=== PATIENT | male | born 1965 | race Caucasian/White ===

== ENCOUNTER → 2016-10-21 | Outpatient (CLI) | payer OTHER ==
[~2016-10-21] MED LIST: ANDG TOP; BUPR-79 PO; CYCL5TAB PO; FAMO40TA6 PO; HYDR-3763 PO; IMT100 PO; LISI20TA3 PO; METO25TA56 PO
[2016-10-21 17:07] LABS: BASO % 0.4 %; BASO ABS # 0.04 K/uL (0-0.2); COMPLETE YES; EOS % 2.4 %; HEMATOCRIT 49.2 % (42-52); IG% 0.3 %; LYMPH % 28.6 %; LYMPH ABS # 2.73 K/uL (1.2-3.4); MEAN CELL VOLUME 89.8 fL (80-100); MEAN CORPUSCULAR HEMOGLOBIN 29.4 pg (25-34); MEAN CORPUSCULAR HGB CONC 32.7 g/dl (32-36); MEAN PLATELET VOLUME 11.2 fL (7.4-10.4); MONO % 7.5 %; NEUT % 60.8 %; PLATELET COUNT 285 K/uL (130-400); RED BLOOD COUNT 5.48 M/uL (4.7-6.1); WHITE BLOOD COUNT 9.55 K/uL (4.8-10.8)
[2016-10-21 17:17] LABS: ALT/SGPT 53 U/L (12-78); AST/SGOT 25 U/L (15-37); BLOOD UREA NITROGEN 15 mg/dl (7-18); BUN/CREATININE RATIO 10.4 (10-20); CALCIUM 9.5 mg/dl (8.5-10.1); CARBON DIOXIDE 26 mmol/L (21-32); CHLORIDE 111 mmol/L (98-107); GLUCOSE 133 mg/dl (70-99); POTASSIUM 3.9 mmol/L (3.5-5.1); SODIUM 142 mmol/L (136-145); TRIGLYCERIDES 412 mg/dl (0-150); URIC ACID 7.3 mg/dl (2.6-7.2)
[2016-10-21 17:24] LABS: TESTOSTERONE,TOTAL 175.6 ng/dl
[2016-10-21 17:26] LABS: ALB/GLOB RATIO 1.2 (0.9-2); ALKALINE PHOSPHATASE 66 U/L (45-117); CHOLESTEROL 197 mg/dl (0-200); CHOLESTEROL/HDL RATIO 5.1; HDL CHOLESTEROL 39 mg/dl; THYROID STIMULATING HORMONE 0.786 uIu/ml (0.300-4.500); TOTAL IRON BINDING CAPACITY 335 mcg/dl (250-450)
[2016-10-22 06:36] LABS: ESTIMATED AVERAGE GLUCOSE 100 mg/dl; HA1C FLAG Normal (Normal)
== END | disposition home or self-care (01) ==
LOC: C.LABBC 14:29
PROVIDERS: ATTEND Family Medicine
DX: R73.09 Other abnormal glucose (principal); E55.9 Vitamin D deficiency, unspecified; D51.9 Vitamin B12 deficiency anemia, unspecified; E78.9 Disorder of lipoprotein metabolism, unspecified; R53.83 Other fatigue

== ENCOUNTER 2023-12-16 15:03 | Inpatient (IN) ==
--- NOTE | 2023-12-16 16:29 | Emergency Department Note ---
Impression & Plan Acute kidney injury, Right testicular pain, Nephrolithiasis ED Provider Note CHIEF COMPLAINT: right testicular pain, right flank pain HISTORY OF PRESENT ILLNESS: This 58 year old male patient presents to the emergency department via private vehicle for evaluation of right testicular pain and right flank pain. The patient was here yesterday. The patient had a history of varicocelectomy completed approximately 2 months ago. He has had some persistent scrotal pain since this procedure, but the pain is primarily in the left. Yesterday morning, he woke up and the pain was on the right. He states the pain was very acute and he presented to the emergency department at that time. He had labs and ultrasound imaging which were generally unrevealing. He was started on Levaquin. The patient states he has taken his prescribed hydrocodone, but has not taken any additional pain medication. He does note that the Toradol yesterday did seem to help significantly with his pain. The patient denies any fever. He states today, the pain seems to be wrapping around into the right side of the back. He denies any dysuria, urinary frequency, urinary hesitancy, hematuria. He did have nausea and vomiting earlier in the day. He denies any history of similar symptoms. Patient has not called his urologist to establish outpatient follow-up appointment regarding these symptoms. REVIEW OF SYSTEMS: A 10 system review of systems was performed with positives and pertinent negatives listed in the history of present illness. All other systems were reviewed and are negative. ALLERGIES: Topamax PHYSICAL EXAM: VITALS: Vitals are noted on the nurse's note and reviewed by myself. Vital signs stable. GENERAL: This is a 58 year old male, in no acute distress, nondiaphoretic, well- developed well-nourished. SKIN: The skin was without rashes, erythema, edema, or bruising. There is no tenting of the skin. Capillary refill less than 2 seconds. HEAD: Normocephalic atraumatic. EYES: Conjunctivae without injection, sclerae without icterus. NECK: Supple without nuchal rigidity. No lymphadenopathy. Cervical spine is nontender. No JVD. HEART: Regular rate and rhythm without murmurs gallops or rubs. LUNGS: Clear to auscultation bilaterally without wheezes, rales or rhonchi. No retractions or accessory muscle use. ABDOMEN: Positive bowel sounds x 4. Soft, nontender, without masses or organomegaly. Osuna sign negative. No guarding or rebound tenderness. MUSCULOSKELETAL: No muscle atrophy, erythema, or edema noted. Full range of motion without joint tenderness in all extremities. No tenderness to palpation. Normal gait. Strength 5/5 throughout. NEURO: Patient was alert and oriented to person place and time. No focal neurological deficits. An order was placed for continuous manager monitoring. The monitor showed a normal sinus rhythm at a ventricular rate of 97 bpm, per my interpretation. Imaging as interpreted by myself and the radiologist revealed 3 distal ureteral stones with hydronephrosis, with radiologist interpretation as above. I agree with the radiologist's findings as based upon my independent interpretation. EMERGENCY DEPARTMENT COURSE: The patient was seen and evaluated as above. Previous medical records to include previous ED visit were reviewed. The patient presents today due to right testicular pain which is radiating around to the right flank. He did have ultrasound yesterday which was generally unrevealing. He had urinalysis and labs completed as well at that time. The patient was started on levofloxacin which he has not picked up from the pharmacy yet. He did experience significant improvement in his pain with Toradol. IV access was obtained, labs were drawn. Patient was hydrated with IV fluids and medicated with Toradol. Labs reviewed. Per my interpretation, there was a leukocytosis of 15,000. No anemia or thrombocytopenia. Hepatic function and electrolytes without significant abnormality. Creatinine is elevated at 2.09. This is a change from creatinine yesterday of 1.38. Lipase is 16. Urinalysis with 1+ leukocyte esterase and 11-20,000 epithelial cells as well as 1+ ketones. No bacteria or nitrates. CT imaging was completed and reviewed by myself radiologist as noted. This was concerning for 3 distal ureteral stones with hydronephrosis. Given the workup completed here in the emergency department as well as the MINOO when compared to labs completed yesterday, I did recommend inpatient management. The patient was agreeable. I discussed case with the [facility] hospitalist physician, Dr. Mancilla. He did request that I speak with urology. I discussed the case with Dr. Hand, urologist on-call. He recommends keeping the patient n.p.o. at midnight and will discuss the case with his partners. The patient may go to the OR for stent placement tomorrow. Please see hospitalist and urology dictation regarding ongoing management care of this patient. This visit is during a period of high volume and high acuity in the emergency department. I attest that I have personally reviewed the patient medication list. I attest that I have reviewed the patient's blood pressure and it was found to be normal GCS: 15 In the evaluation and treatment of this patient the following differential diagnoses were entertained: Testicular torsion, mass, infection, hernia, hydrocele, stone, epididymitis, STI, trauma, intra-abdominal process, as well as other pathologies. The chart was completed utilizing [employer] voice recognition software. Grammatical errors, random word insertions, pronoun errors, and incomplete sentences are an occasional consequence of this system due to software limitations, ambient noise, and hardware issues. Any formal questions or concerns about the content, text, or information contained within the body of this dictation should be directly addressed to the provider for clarification. Past Med/Surg History Problem List (Updated 12/17/23 @ 00:16 by Kacie Perez PA-C) Acute kidney injury (Acute) Urine WBC increased (Acute) Right testicular pain (Acute) Hypertension Scrotal pain Left varicocele Migraine without aura Tinnitus, bilateral Situational stress Delayed sleep phase syndrome Fatigue Vitamin D deficiency Colon cancer screening Encounter for pre-operative examination Hyperlipidemia Left lower quadrant pain Prostate asymmetry Mood disorder TMJ (temporomandibular joint disorder) Actinic keratoses Sleep apnea Left inguinal hernia Prostate cancer screening Impacted ear wax Testicular pain Erectile dysfunction Exposure to sexually transmitted disease (STD) Mood disorder Atypical mole Hypogonadism in male GERD (gastroesophageal reflux disease) Dyslipidemia Lumbar disc disease Fibromyalgia (01/06/13) Nephrolithiasis (Acute) Migraine headache Hypertension Medical History Mood disorder Dyslipidemia Hypertension Insufficient sleep syndrome Migraine Encounter for sterilization Venom-induced anaphylaxis 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 "had been having trouble chewing and opening and closing mouth, due to the pain">started on cyclobenzaprine. pt stated "he has been using it every night and it helps">no locking Lumbar disc disease Fibromyalgia Sleep apnea not currently using cpap GERD (gastroesophageal reflux disease) Anxiety History of COVID-19 x2, most recent 08/2021, home test, not hosp; mild symptoms>resolved Depression Personal history of urinary calculi (01/06/13) Surgical History History of excision of pilonidal cyst Hx of colonoscopy Hx of wisdom tooth extraction S/P cystoscopy with ureteral stent placement S/P shoulder surgery 2016- acromioplasty & distal clavicular resection, left History of vasectomy Family History Mother Hypertension Thyroid cancer Father COPD (chronic obstructive pulmonary disease) Melanoma of skin Sister Breast cancer Sister Colorectal cancer Denies family history of Sudden Ovarian cancer Prostate cancer Diabetes Myocardial infarction Lung cancer Lung disease Social History Smoking Status: Former smoker Tobacco Type: Cigarettes Age Started Using Tobacco: 18; Age Quit Using Tobacco: 49; packs per day: 0.5; Cigarettes Per Day: 2-3; Second Hand Exposure: No; Do You Dip or Chew Tobacco: No; Tobacco Cessation Education Requested by Patient: No Hx Alcohol Use: Yes Alcohol type: hard liquor Alcohol Intake Frequency: Monthly or Less Hx Substance Use: No Preferred Language: Belgian Communication Ability: Effective Visual Impairment: Limited Hearing Ability: Normal Fiber Worker Required: No Beliefs That Will Affect Care: None marital status: Current Living Situation: Family Current Living Situation Comment: Patient and his two children. current occupational status: employed current occupation: Shuttle Operator How many Children do You have: 3 Other Information That Helps Us Care for You: No Feels Safe at Home: Yes Safety Concerns: Feels Safe At This Time Childhood Exposure to Second-Hand Smoke: Yes Diet: regular caffeine: Yes (1-2 cups of coffee daily , occasional tea) during the past year weight has: remained stable Dental Care, Regularly: Yes Physical Activity Frequency: 3-4 Times per Week Seatbelt Use: always Sunscreen Use: Yes Do you think of yourself as: straight/heterosexual Gender Identity: Male Assistive Devices: Glasses Allergies Allergies Allergy/AdvReac Type Severity Reaction Status Date / Time bee venom protein (honey bee) Allergy Severe Anaphylaxis Verified 12/15/23 09:17 topiramate [From Topamax] AdvReac Unknown renal stone Verified 12/15/23 09:17 Home Meds Home Medications Medication Instructions Recorded Confirmed ergocalciferol (vitamin D2) 1,250 1,250 mcg PO 2XWK 01/22/23 12/16/23 mcg (50,000 unit) capsule (Vitamin D2) tadalafil 20 mg tablet 20 mg PO DAILY PRN Erectile 01/22/23 12/16/23 Dysfunction cyclobenzaprine 10 mg tablet 10 mg PO HS PRN prn 09/09/23 12/16/23 naratriptan 2.5 mg tablet 2.5 mg PO UD PRN prn 09/09/23 12/16/23 pantoprazole 40 mg tablet,delayed 40 mg PO BID 09/23/23 12/16/23 release (Protonix) Previous Rx's Medication Instructions Recorded sildenafil 100 mg tablet 100 mg PO DAILY PRN sexual 12/04/22 activity #10 tabs sumatriptan succinate 100 mg tablet 100 mg PO Q2H PRN migraine 02/19/23 headache #10 tabs testosterone (AndroGel) 2 pump topical DAILY #75 grams 07/22/23 alprazolam 0.5 mg tablet (Xanax) 0.5 mg PO HS #30 tabs 07/23/23 bupropion HCl 150 mg tablet,12 hr 150 mg PO BID #60 tabs 08/06/23 sustained-release hydrocodone 10 mg-acetaminophen 1 tab PO TID PRN pain #90 tabs 11/25/23 325 mg tablet tamsulosin 0.4 mg capsule 0.4 mg PO QPM #30 caps 11/25/23 divalproex 250 mg tablet,delayed 250 mg PO HS #30 tabs 11/27/23 release Saccharomyces boulardii 250 mg 250 mg PO BID #20 caps 12/15/23 capsule (Florastor) levofloxacin 500 mg tablet 500 mg PO DAILY 10 days #10 tabs 12/15/23 Results & Data (ED) Vital Signs Vital Signs - 24 hr 12/16/23 15:55 12/16/23 16:41 12/16/23 17:28 Temperature 36.9 C Temperature Source Temporal Artery Scan Pulse Rate 110 H 88 Pulse Rate [Apical] 99 H Respiratory Rate 18 14 18 Blood Pressure 136/82 Blood Pressure [Right Arm] 143/86 H Blood Pressure Mean 100 Blood Pressure Mean [Right Arm] 105 Pulse Oximetry 95 98 96 Oxygen Delivery Method Room Air Room Air Sepsis Recent Fever Within 48 Hours No Sepsis New/Unexplained Change in Mental Status No Sepsis Action Taken by Nursing No Action Required 12/16/23 18:30 Temperature Temperature Source Pulse Rate Pulse Rate [Apical] 94 H Respiratory Rate 16 Blood Pressure Blood Pressure [Right Arm] 134/90 Blood Pressure Mean Blood Pressure Mean [Right Arm] 104 Pulse Oximetry 97 Oxygen Delivery Method Room Air Sepsis Recent Fever Within 48 Hours Sepsis New/Unexplained Change in Mental Status Sepsis Action Taken by Nursing Laboratory Data 12/16/23 16:44 12/16/23 16:44 Lab Results 12/16/23 12/16/23 Range/Units 16:44 17:26 WBC 15.82 H (4.8-10.8) K/ul RBC 5.45 (4.70-6.10) M/uL Hgb 15.8 (14.0-18.0) g/dl Hct 47.1 (42.0-52.0) % MCV 86.4 (80.0-100.0) fL MCH 29.0 (25.0-34.0) pg MCHC 33.5 (32.0-36.0) g/dL RDW Std Deviation 39.5 (36.4-46.3) fL RDW Coeff of Marco 12.7 (11.5-14.5) % Plt Count 218 (130-400) K/uL MPV 10.7 (9.4-12.4) fL Immature Gran % (Auto) 0.5 % Neut % (Auto) 83.9 % Lymph % (Auto) 7.4 % [place] % (Auto) 8.0 % Eos % (Auto) 0.1 % Baso % (Auto) 0.1 % Neut # (Auto) 13.27 H (1.40-6.50) K/uL Lymph # (Auto) 1.17 L (1.20-3.40) K/uL [place] # (Auto) 1.27 H (0.11-0.59) K/uL Eos # (Auto) 0.01 (0.00-0.50) K/uL Baso # (Auto) 0.02 (0.00-0.20) K/uL Immature Gran # (Auto) 0.08 (0.01-0.20) K/uL Sodium 139 (136-145) mmol/L Potassium 3.7 (3.5-5.1) mmol/L Chloride 105 (98-107) mmol/L Carbon Dioxide 26 (21-32) mmol/L Anion Gap 8 (3-11) BUN 20 (6-23) mg/dl Creatinine 2.09 H D (0.6-1.4) mg/dl Est Cr Clr Drug Dosing 41.8 ml/min Est GFR ( Amer) 39.5 ml/min Est GFR (Non-Af Amer) 34.1 ml/min BUN/Creatinine Ratio 9.6 L (10-20) Glucose 148 H (70-99(Fasting)) mg/dl Calcium 9.4 (8.6-10.3) mg/dl Total Bilirubin 1.0 (0.2-1.0) mg/dl AST 20 (13-39) U/L ALT 19 (7-52) U/L Alkaline Phosphatase 50 (34-104) U/L Total Protein 7.3 (6.0-8.3) gm/dl Albumin 4.3 (3.4-5.0) gm/dl Globulin 3.0 (2.5-4.0) gm/dl Albumin/Globulin Ratio 1.4 (0.9-2) Lipase 16 (11-82) U/L Urine Color Yellow Urine Appearance Clear (Clear) Urine pH 5.5 (4.5-7.5) Ur Specific Stewart 1.029 (1.000-1.030) Urine Protein 1+ H (Negative) Urine Glucose (UA) Trace H (Negative) Urine Ketones 1+ H (Negative) Urine Blood Negative (Negative) Urine Nitrite Negative (Negative) Urine Bilirubin Negative (Negative) Urine Urobilinogen Negative (Negative) Ur Leukocyte Esterase 1+ H (Negative) Urine WBC (Auto) 11-20 H (0-5) /hpf Urine RBC (Auto) 0-2 (0-2) /hpf U Hyaline Cast (Auto) 0-2 (0-2) /lpf U Epithel Cells (Auto) 0-2 (0-2) /hpf Urine Bacteria (Auto) None Seen (None Seen) Administered Medications Alprazolam (Alprazolam 0.5 Mg Tablet) 0.5 mg PO HS TORREY Stop: 01/15/24 20:59 Last Admin: 12/16/23 21:33 Dose: 0.5 mg Documented By: TAYE Bupropion HCl (Bupropion Sr 150 Mg Tabcr) 150 mg PO BID TORREY Stop: 01/15/24 20:59 Last Admin: 12/16/23 21:33 Dose: 150 mg Documented By: TAYE Cyclobenzaprine HCl (Cyclobenzaprine Hcl 10 Mg Tab) 10 mg PO HS PRN PRN Reason: prn Stop: 01/15/24 20:40 Last Admin: 12/16/23 21:33 Dose: 10 mg Documented By: TAYE Divalproex Sodium (Divalproex Delay Release 250 Mg Tabec) 250 mg PO HS TORREY Stop: 01/15/24 20:59 Last Admin: 12/16/23 21:34 Dose: 250 mg Documented By: TAYE Parenteral Electrolytes (Plasma-Lyte A Ph 7.4) 1,000 mls @ 100 mls/hr IV .Q10H TORREY Stop: 12/17/23 15:14 Last Admin: 12/16/23 21:33 Dose: 100 mls/hr Documented By: TAYE Pantoprazole Sodium (Pantoprazole 40 Mg Tab) 40 mg PO BID TORREY Stop: 01/15/24 20:59 Last Admin: 12/16/23 21:34 Dose: 40 mg Documented By: TAYE Sumatriptan Succinate (Sumatriptan Succinate 100 Mg Tab) 100 mg PO Q2H PRN PRN Reason: migraine headache Stop: 01/15/24 20:40 Last Admin: 12/16/23 23:15 Dose: 100 mg Documented By: TAYE Tamsulosin HCl (Tamsulosin Hcl 0.4 Mg Cap) 0.4 mg PO QPM TORREY Stop: 01/15/24 20:59 Last Admin: 12/16/23 21:34 Dose: 0.4 mg Documented By: TAYE Discontinued Medications Sodium Chloride (Nss) 1,000 mls @ 999 mls/hr IV .Q1H1M STA Stop: 12/16/23 17:19 Last Infusion: 12/16/23 18:03 Dose: Infused Documented By: Admin: 09/25/24 16:40 Dose: 999 mls/hr Documented By: MARTA Ceftriaxone Sodium (Rocephin) 2,000 mg in 50 mls @ 100 mls/hr IV NOW STA Stop: 12/16/23 19:20 Last Infusion: 12/16/23 21:02 Dose: Infused Documented By: Admin: 12/16/23 19:51 Dose: 100 mls/hr Documented By: HECTOR Ketorolac Tromethamine (Ketorolac Tromethamine 15 Mg/Ml Vial) 10 mg IV NOW STA Stop: 12/16/23 16:20 Last Admin: 12/16/23 16:40 Dose: 10 mg Documented By: MARTA Ondansetron HCl (Ondansetron Inj 2 Mg/Ml 2 Ml Vial) 4 mg IV NOW STA Stop: 12/16/23 16:20 Last Admin: 12/16/23 16:40 Dose: 4 mg Documented By: SRL Imaging Data Radiologist's Impression: Abdomen/Pelvis CT 12/16/23 16:[address] WITHOUT CONTRAST CT DOSE: 1313.84 mGy.cm HISTORY: Acute right-sided flank pain right flank pain rad to right scrotum TECHNIQUE: Multiaxial CT images of the abdomen and pelvis were performed without contrast. A dose lowering technique was utilized adhering to the principles of ALARA. COMPARISON STUDY: 02/10/2023 FINDINGS: Mild bibasilar atelectasis. Free air. Unremarkable spleen, pancreas, gallbladder and adrenal glands. Mild hepatomegaly with hepatic steatosis. No evidence of cirrhosis. Numerous nonobstructing bilateral renal calculi redemonstrated measuring up to approximately 4 mm bilaterally. There is mild right-sided hydroureteronephrosis with reactive perinephric and perirenal inflammatory stranding secondary to approximately 3 obstructing calculus distal right ureter/UVJ measuring up to 5 mm. Partially decompressed urinary bladder. Prostatomegaly. Atherosclerosis of the aorta without aneurysm. Surgical clips of the scrotum. No bowel obstruction or bowel wall thickening. Colonic diverticulosis. Indeterminate 3.4 cm focus in the mid cecum, likely stool products. Normal appendix. No acute fracture. IMPRESSION: 1. Mild right-sided hydroureteronephrosis secondary to three distal right ureteral calculi measuring up to 5 mm. 2. Nonobstructing bilateral nephrolithiasis. 3. Normal appendix. 4. Hepatic steatosis. ACT 112: Negative or not required by law. The above report was generated using voice recognition software. It may contain grammatical, syntax or spelling errors. Electronically signed by: Carmine Hampton M.D. 12/16/2023 5:31 PM Discharge Plan Visit Data Chief Complaint: Back Injury/Pain Stated Complaint: BACK PAIN ED Provider: Carmelita Estevez ED Midlevel Provider: Kacie Perez Discharge Problem: Acute kidney injury, Right testicular pain, Nephrolithiasis Patient Disposition: Admitted As Inpatient Discharge Instructions Interventions: ED Discharge Assessment Last Done: 12/16/23 20:23
[2023-12-16] MEDS: SODIUM CHLORIDE 0.9% 1,000 ML IV STA (16:40)
[2023-12-16] MEDS: ONDANSETRON INJ 2 MG/ML 2 ML VIAL IV STA (16:40)
[2023-12-16] MEDS: KETOROLAC TROMETHAMINE 15 MG/ML VIAL IV STA (16:40)
[2023-12-16 17:08] LABS: Basophils # (auto) 0.02 K/uL (0.00-0.20); Basophils % (auto) 0.1 %; Eosinophils # (auto) 0.01 K/uL (0.00-0.50); Eosinophils % (auto) 0.1 %; Hematocrit (blood only) 47.1 % (42.0-52.0); Hemoglobin 15.8 g/dl (14.0-18.0); Immature Granulocytes # (auto) 0.08 K/uL (0.01-0.20); Immature Granulocytes % (auto) 0.5 %; Lymphocytes # (auto) 1.17 K/uL (1.20-3.40); Lymphocytes % (auto) 7.4 %; Mean Corpuscular Hgb Conc 33.5 g/dL (32.0-36.0); Mean Corpuscular Volume 86.4 fL (80.0-100.0); Mean Platelet Volume 10.7 fL (9.4-12.4); Monocytes # (auto) 1.27 K/uL (0.11-0.59); Neutrophils # (auto) 13.27 K/uL (1.40-6.50); Neutrophils % (auto) 83.9 %; Platelet Count 218 K/uL (130-400); RDW Coefficient of Variation 12.7 % (11.5-14.5); RDW Standard Deviation 39.5 fL (36.4-46.3); Red Blood Count 5.45 M/uL (4.70-6.10); White Blood Count 15.82 K/ul (4.8-10.8)
[2023-12-16 17:30] LABS: Albumin Globulin Ratio 1.4 (0.9-2); Albumin Level 4.3 gm/dl (3.4-5.0); BUN Creatinine Ratio 9.6 (10-20); Calcium 9.4 mg/dl (8.6-10.3); Creatinine Clr Calc Pharmacy 41.8 ml/min; Est GFR (African American) 39.5 ml/min; Est GFR (Non-African American) 34.1 ml/min; Potassium 3.7 mmol/L (3.5-5.1); Total Protein 7.3 gm/dl (6.0-8.3)
--- NOTE | 2023-12-16 17:34 | CT Scan Report ---
ABDOMEN AND PELVIS CT WITHOUT CONTRAST CT DOSE: 1313.84 mGy.cm HISTORY: Acute right-sided flank pain right flank pain rad to right scrotum TECHNIQUE: Multiaxial CT images of the abdomen and pelvis were performed without contrast. A dose lo wering technique was utilized adhering to the principles of ALARA. COMPARISON STUDY: 02/10/2023 FINDINGS: Mild bibasilar atelectasis. Free air. Unremarkable spleen, pancreas, gallbladder and adrena l glands. Mild hepatomegaly with hepatic steatosis. No evidence of cirrhosis. Numerous nonobstructing bilateral renal calculi redemonstrated measuring up to approximately 4 mm radha aterally. There is mild right-sided hydroureteronephrosis with reactive perinephric and perirenal inf lammatory stranding secondary to approximately 3 obstructing calculus distal right ureter/UVJ measuri ng up to 5 mm. Partially decompressed urinary bladder. Prostatomegaly. Atherosclerosis of the aorta w ithout aneurysm. Surgical clips of the scrotum. No bowel obstruction or bowel wall thickening. Colonic diverticulosis. Indeterminate 3.4 cm focus in the mid cecum, likely stool products. Normal appendix. No acute fracture. IMPRESSION: 1. Mild right-sided hydroureteronephrosis secondary to three distal right ureteral calculi measuring up to 5 mm. 2. Nonobstructing bilateral nephrolithiasis. 3. Normal appendix. 4. Hepatic steatosis. ACT 112: Negative or not required by law. The above report was generated using voice recognition software. It may contain grammatical, syntax o r spelling errors. Electronically signed by: Carmine Hampton M.D. 12/16/2023 5:31 PM
[2023-12-16 17:54] LABS: Appearance Urine Clear (Clear); Bacteria Urine Automated None Seen (None Seen); Bilirubin Urine Negative (Negative); Blood Urine Negative (Negative); Cast Urine Automated 0-2 /lpf (0-2); Color Urine Yellow; Epithelial Cell Urine Auto 0-2 /hpf (0-2); Glucose Urine UA Trace (Negative); Ketones Urine 1+ (Negative); Leukocyte Esterase Urine 1+ (Negative); Nitrite Urine Negative (Negative); Protein Urine 1+ (Negative); RBC Urine Automated 0-2 /hpf (0-2); Specific Gravity Urine 1.029 (1.000-1.030); Urobilinogen Urine Negative (Negative); pH Urine 5.5 (4.5-7.5)
--- NOTE | 2023-12-16 18:44 | History & Physical Report ---
Date of Service December 16, 2023 Assessment & Plan (1) Nephrolithiasis: Plan: Worsening right-sided scrotal and lower back pain x 2 days Leukocytosis at 11.55->15.82 with a neutrophil predominance A/P CT revealed mild right-sided hydroureteronephrosis secondary to 3 distal right ureteral calculi measuring up to 5 mm Urology consult appreciated N.p.o. at midnight in the event that patient requires stenting Will cover for infected stone with Rocephin 2000 mg IV q24h IVF resuscitation with Plasma-Lyte at 100mL/hr x 2 L Pain control with IV acetaminophen and Dilaudid as needed Continue tamsulosin A.m. CBC, BMP (2) Acute kidney injury: Plan: BUN 20, creatinine 2.09 (baseline 1.38; the day prior), eGFR 39.5 Avoid nephrotoxic agents where possible IVF (above) Trend BMP (3) Scrotal pain: Plan Disposition: Admit to [facility] Full code Regular diet; n.p.o. at midnight VTE PPx: SCDs History of Present Illness Chief Complaint: Back injury/pain Primary Care Provider: Harlan Johnson MD Kaushik is a 58-year-old male with PMH of HTN, migraine, nephrolithiasis, fibromyalgia, GERD, dyslipidemia, mood disorder, sleep apnea, and bilateral tinnitus. He originally presented to the ED on 12/14 for acute onset of right sided groin pain; was discharged on levofloxacin 500 mg daily. He returned on 12/15 as the pain worsened and began to radiate to his lower back. History of recent varicocelectomy on September 23, 2023; however this was on the left side. Patient reports that the pain in his right groin and lower back is intermittent and comes in waves, but can last for hours at a time. He characterizes it as an achy pain and describes it as 2/10 at present, 8/10 at worst. No radiation down the legs. Patient took hydrocodone tablets (3 half tablets today), but reports that this did not alleviate his pain. He does have a history of kidney stones, but feels like prior kidney stones were more painful than what he is feeling currently. Patient has not had much to eat or drink all day. He took his regular morning medications today; no recent change in medications. No history of UTIs. He reports no medication allergies, or allergies to antibiotics such as penicillin. Patient's vitals are stable at time of admission. ED course: Toradol 10 mg IV Zofran 4 mg IV NSS 1000 L IV ROS: Patient endorses R-sided groin pain, lower back pain, lightheadedness with movements, pink urine yesterday (concern for blood in urine), Patient denies fever, chills, night-sweats, IVERSON, chest pain, SOB, cough, abdominal pain, burning with urination, decreased urinary frequency, dysuria, saddle anesthesia, blood in the stool, or N/T going down the legs. Allergies Allergy/AdvReac Type Severity Reaction Status Date / Time bee venom protein (honey bee) Allergy Severe Anaphylaxis Verified 12/15/23 09:17 topiramate [From Topamax] AdvReac Unknown renal stone Verified 12/15/23 09:17 Home Medications Medication Instructions Recorded Confirmed Type sildenafil 100 mg tablet 100 mg PO DAILY PRN sexual 12/04/22 12/16/23 Rx activity #10 tabs ergocalciferol (vitamin D2) 1,250 1,250 mcg PO 2XWK 01/22/23 12/16/23 History mcg (50,000 unit) capsule (Vitamin D2) tadalafil 20 mg tablet 20 mg PO DAILY PRN Erectile 01/22/23 12/16/23 History Dysfunction sumatriptan succinate 100 mg tablet 100 mg PO Q2H PRN migraine 02/19/23 12/16/23 Rx headache #10 tabs testosterone (AndroGel) 2 pump topical DAILY #75 grams 07/22/23 12/16/23 Rx alprazolam 0.5 mg tablet (Xanax) 0.5 mg PO HS #30 tabs 07/23/23 12/16/23 Rx bupropion HCl 150 mg tablet,12 hr 150 mg PO BID #60 tabs 08/06/23 12/16/23 Rx sustained-release cyclobenzaprine 10 mg tablet 10 mg PO HS PRN prn 09/09/23 12/16/23 History naratriptan 2.5 mg tablet 2.5 mg PO UD PRN prn 09/09/23 12/16/23 History pantoprazole 40 mg tablet,delayed 40 mg PO BID 09/23/23 12/16/23 History release (Protonix) hydrocodone 10 mg-acetaminophen 1 tab PO TID PRN pain #90 tabs 11/25/23 12/16/23 Rx 325 mg tablet tamsulosin 0.4 mg capsule 0.4 mg PO QPM #30 caps 11/25/23 12/16/23 Rx divalproex 250 mg tablet,delayed 250 mg PO HS #30 tabs 11/27/23 12/16/23 Rx release Saccharomyces boulardii 250 mg 250 mg PO BID #20 caps 12/15/23 12/16/23 Rx capsule (Florastor) levofloxacin 500 mg tablet 500 mg PO DAILY 10 days #10 tabs 12/15/23 12/16/23 Rx Past Med/Surg History Problem List (Updated 12/16/23 @ 18:49 by Chong Alford PA-C) Acute kidney injury Urine WBC increased (Acute) Right testicular pain (Acute) Hypertension Scrotal pain Left varicocele Migraine without aura Tinnitus, bilateral Situational stress Delayed sleep phase syndrome Fatigue Vitamin D deficiency Colon cancer screening Encounter for pre-operative examination Hyperlipidemia Left lower quadrant pain Prostate asymmetry Mood disorder TMJ (temporomandibular joint disorder) Actinic keratoses Sleep apnea Left inguinal hernia Prostate cancer screening Impacted ear wax Testicular pain Erectile dysfunction Exposure to sexually transmitted disease (STD) Mood disorder Atypical mole Hypogonadism in male GERD (gastroesophageal reflux disease) Dyslipidemia Lumbar disc disease Fibromyalgia (01/06/13) Nephrolithiasis Migraine headache Hypertension Medical History Mood disorder Dyslipidemia Hypertension Insufficient sleep syndrome Migraine Encounter for sterilization Venom-induced anaphylaxis 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 "had been having trouble chewing and opening and closing mouth, due to the pain">started on cyclobenzaprine. pt stated "he has been using it every night and it helps">no locking Lumbar disc disease Fibromyalgia Sleep apnea not currently using cpap GERD (gastroesophageal reflux disease) Anxiety History of COVID-19 x2, most recent 08/2021, home test, not hosp; mild symptoms>resolved Depression Personal history of urinary calculi (01/06/13) Surgical History History of excision of pilonidal cyst Hx of colonoscopy Hx of wisdom tooth extraction S/P cystoscopy with ureteral stent placement S/P shoulder surgery 2016- acromioplasty & distal clavicular resection, left History of vasectomy Family History Mother Hypertension Thyroid cancer Father COPD (chronic obstructive pulmonary disease) Melanoma of skin Sister Breast cancer Sister Colorectal cancer Denies family history of Sudden Ovarian cancer Prostate cancer Diabetes Myocardial infarction Lung cancer Lung disease Social History Smoking Status: Former smoker Tobacco Type: Cigarettes Age Started Using Tobacco: 18; Age Quit Using Tobacco: 49; packs per day: 0.5; Second Hand Exposure: No; Do You Dip or Chew Tobacco: No; Hx Alcohol Use: Yes Alcohol type: wine and hard liquor Alcohol Intake Frequency: Monthly or Less Hx Substance Use: No Preferred Language: Emirati Communication Ability: Effective Visual Impairment: Limited Hearing Ability: Normal Financial Health Counselor Required: No Beliefs That Will Affect Care: None marital status: Current Living Situation: Family current occupational status: employed current occupation: Computer Help Desk Specialist How many Children do You have: 3 Feels Safe at Home: Yes Childhood Exposure to Second-Hand Smoke: Yes Diet: regular caffeine: Yes (1-2 cups of coffee daily , occasional tea) during the past year weight has: remained stable Dental Care, Regularly: Yes Physical Activity Frequency: 3-4 Times per Week Seatbelt Use: always Sunscreen Use: Yes Do you think of yourself as: straight/heterosexual Gender Identity: Male Assistive Devices: Glasses Review of Systems Review of Systems: See HPI above Physical Exam Physical Exam: General: no acute distress; pleasant affect; anxious; non-toxic appearing; well- nourished; cooperative; SpO2 97% on RA HEENT: normocephalic, atraumatic; no scleral icterus; PERRLA; vision and hearing grossly intact Neck: supple; no lymphadenopathy; trachea midline Skin: warm, dry without signs of tenting; no cyanosis; no rashes, bruising, lesions, or erythema noted CV: chest wall NTP; RRR; S1/S2 normal; no murmurs/rubs/gallops; pulses intact and symmetric at radial, DP, and PT Lungs: no acute respiratory distress; symmetrical chest wall expansion; clear breath sounds across all lung caldera w/o adventitious sounds; no wheezing ABD: Soft, NTP in all 4 quadrants; flanks NTP; BS present; no rebound/guarding; no distention; no rashes or bruising on the abdomen or flanks bilaterally MSK: no tics or fasciculations; no edema noted in the LEs b/l, nonerythematous Neuro: A&Ox3; normal mood and affect; fluent speech; no focal deficits; sensation grossly intact in the LEs b/l Results & Data Results & Data Vital Signs (Past 12 Hours) Vital Signs Temp Pulse Pulse Resp BP BP Pulse Ox 12/16/23 18:30 94 H 16 134/90 97 12/16/23 17:28 99 H 18 143/86 H 96 12/16/23 16:41 88 14 98 12/16/23 15:55 36.9 C 110 H 18 136/82 95 O2 Del Method 12/16/23 18:30 Room Air 12/16/23 17:28 12/16/23 16:41 Room Air 12/16/23 15:55 Room Air Laboratory Results Abnormal lab results 12/16/23 12/16/23 Range/Units 16:44 17:26 WBC 15.82 H (4.8-10.8) K/ul Neut # (Auto) 13.27 H (1.40-6.50) K/uL Lymph # (Auto) 1.17 L (1.20-3.40) K/uL Pickett # (Auto) 1.27 H (0.11-0.59) K/uL Creatinine 2.09 H D (0.6-1.4) mg/dl BUN/Creatinine Ratio 9.6 L (10-20) Glucose 148 H (70-99(Fasting)) mg/dl Urine Protein 1+ H (Negative) Urine Glucose (UA) Trace H (Negative) Urine Ketones 1+ H (Negative) Ur Leukocyte Esterase 1+ H (Negative) Urine WBC (Auto) 11-20 H (0-5) /hpf Diagnostic Findings Abdomen/Pelvis CT 12/16/23 16:[address] WITHOUT CONTRAST CT DOSE: 1313.84 mGy.cm HISTORY: Acute right-sided flank pain right flank pain rad to right scrotum TECHNIQUE: Multiaxial CT images of the abdomen and pelvis were performed without contrast. A dose lowering technique was utilized adhering to the principles of ALARA. COMPARISON STUDY: 02/10/2023 FINDINGS: Mild bibasilar atelectasis. Free air. Unremarkable spleen, pancreas, gallbladder and adrenal glands. Mild hepatomegaly with hepatic steatosis. No evidence of cirrhosis. Numerous nonobstructing bilateral renal calculi redemonstrated measuring up to approximately 4 mm bilaterally. There is mild right-sided hydroureteronephrosis with reactive perinephric and perirenal inflammatory stranding secondary to approximately 3 obstructing calculus distal right ureter/UVJ measuring up to 5 mm. Partially decompressed urinary bladder. Prostatomegaly. Atherosclerosis of the aorta without aneurysm. Surgical clips of the scrotum. No bowel obstruction or bowel wall thickening. Colonic diverticulosis. Indeterminate 3.4 cm focus in the mid cecum, likely stool products. Normal appendix. No acute fracture. IMPRESSION: 1. Mild right-sided hydroureteronephrosis secondary to three distal right ureteral calculi measuring up to 5 mm. 2. Nonobstructing bilateral nephrolithiasis. 3. Normal appendix. 4. Hepatic steatosis. ACT 112: Negative or not required by law. The above report was generated using voice recognition software. It may contain grammatical, syntax or spelling errors. Electronically signed by: Carmine Hampton M.D. 12/16/2023 5:31 PM Code Status & VTE Plan Code Status Full code (patient reports that he would want his girlfriend to be medical proxy and emergency situation) VTE Prophylaxis Plan VTE Prophylaxis will be ordered: Yes Supervising Physician Co-Signing Physician Notes Patient seen and examined, chart reviewed, case discussed with Chong Alford PA-C and I agree with the assessment and plan as above except as otherwise noted Labs and images reviewed Mr. العلي is a 58-year-old male with recent history of varicocelectomy left 09/23/2023, past history of GERD, fibromyalgia, lumbar disc disease, TIKA was seen in the ER yesterday for nonspecific mild leukocytosis and scrotal pain with a normal ultrasound while in the ER. Patient re-presents today with worsening pain extending into his back/flank. Seen at bedside. At time of provider reassessment patient reports his pain is greatly improved, but does still come in waves/spasms on his right side. Denies fever chills and sweats. CT shows right-sided hydro with 3 distal ureteral calculi up to 5 mm, he has associated likely obstructive MINOO and possible UTI. Urology is consulted. Patient is covered with Rocephin. IV FM. Agree with above. PG Care Time/CCT Total # of Minutes Spent Total Time Spent with Patient: Total time spent is greater than 50% in coordination of care (as documented) at patient's floor/unit and/or counseling patient: C[place] [address] INT INP/OBS CARE 2/55MIN Patient Type Established Medical Decision Making Moderate Complexity Diagnoses Nephrolithiasis N20.0 Acute kidney injury N17.9 Scrotal pain N50.82
[2023-12-16] MEDS: cefTRIAXone SODIUM 2,000 MG/50 ML BAG IV STA (19:51)
[2023-12-16] MEDS ORDERED: ONDANSETRON INJ 2 MG/ML 2 ML VIAL IV PRN (20:41)
[2023-12-16] MEDS: buPROPion SR 150 MG TABCR PO SCH (21:33)
[2023-12-16] MEDS: PLASMA-LYTE A 1,000 ML IV SCH (21:33)
[2023-12-16] MEDS: ALPRAZolam 0.5 MG TABLET PO SCH (21:33)
[2023-12-16] MEDS: CYCLOBENZAPRINE HCL 10 MG TAB PO PRN (21:33)
[2023-12-16] MEDS: TAMSULOSIN HCL 0.4 MG CAP PO SCH (21:34)
[2023-12-16] MEDS: PANTOprazole 40 MG TAB PO SCH (21:34)
[2023-12-16] MEDS: DIVALPROEX DELAY RELEASE 250 MG TABEC PO SCH (21:34)
[2023-12-16] MEDS: SUMAtriptan succinate 100 MG TAB PO PRN (23:15)
--- NOTE | 2023-12-17 07:34 | Urology Consultation ---
Date of Consultation December 17, 2023 Assessment & Plan (1) Acute kidney injury: (2) Right testicular pain: (3) Right ureteral stone: Plan We reviewed the stones in his right ureter. They are small enough that I think is a good chance of passing them spontaneously, however with his mild leukocytosis, there is suspicion for possible underlying infection. Additionally, his creatinine is somewhat elevated. We discussed the role for cystoscopy, right retrograde pyelogram and right ureteral stent placement. We discussed the risks and benefits of surgery. Initially he wanted to think about his options. After couple hours, he has had recurrent pain in and would now like to proceed with surgery. Will plan on cystoscopy, right retrograde pyelogram and right ureteral stent placement History of Present Illness Attending Physician: Paul Ortiz MD History of Present Illness This is a 57-year-old male followed by urology for hypogonadism, nephrolithiasis, erectile dysfunction and testicular pain. He underwent left microsurgical varicocelectomy on 09/23/2023 has been recovering well. He presented to the emergency department on 12/14 and then again on 12/16/2023 with right-sided flank and right testicular pain. Workup in the ED was notable for gradually increasing leukocytosis (11.55 on 12/14 and 15.8 on 12/15) tomorrow. He also was noted to have an increase in his creatinine (2.09 on 12/15). Urinalysis demonstrated 1+ leukocyte esterase, negative nitrites, negative bacteria. He had a CT scan of the abdomen pelvis. I independently reviewed these images. Both kidneys are in normal position. There are small, nonobstructing stones in both kidneys. There is hydronephrosis and some perinephric stranding on the right side extending down to a cluster of stones in the distal right ureter at the UPJ. His bladder appears grossly normal, as does his prostate. Urology was consulted regarding his ureteral stones. At the bedside this morning he denies any significant pain at the moment. He has had some nausea and vomiting. He denies any fevers or chills. Allergies Allergy/AdvReac Type Severity Reaction Status Date / Time bee venom protein (honey bee) Allergy Severe Anaphylaxis Verified 12/15/23 09:17 topiramate [From Topamax] AdvReac Unknown renal stone Verified 12/15/23 09:17 Home Medications Medication Instructions Recorded Confirmed Type sildenafil 100 mg tablet 100 mg PO DAILY PRN sexual 12/04/22 12/16/23 Rx activity #10 tabs ergocalciferol (vitamin D2) 1,250 1,250 mcg PO 2XWK 01/22/23 12/16/23 History mcg (50,000 unit) capsule (Vitamin D2) tadalafil 20 mg tablet 20 mg PO DAILY PRN Erectile 01/22/23 12/16/23 History Dysfunction sumatriptan succinate 100 mg tablet 100 mg PO Q2H PRN migraine 02/19/23 12/16/23 Rx headache #10 tabs testosterone (AndroGel) 2 pump topical DAILY #75 grams 07/22/23 12/16/23 Rx alprazolam 0.5 mg tablet (Xanax) 0.5 mg PO HS #30 tabs 07/23/23 12/16/23 Rx bupropion HCl 150 mg tablet,12 hr 150 mg PO BID #60 tabs 08/06/23 12/16/23 Rx sustained-release cyclobenzaprine 10 mg tablet 10 mg PO HS PRN prn 09/09/23 12/16/23 History naratriptan 2.5 mg tablet 2.5 mg PO UD PRN prn 09/09/23 12/16/23 History pantoprazole 40 mg tablet,delayed 40 mg PO BID 09/23/23 12/16/23 History release (Protonix) hydrocodone 10 mg-acetaminophen 1 tab PO TID PRN pain #90 tabs 11/25/23 12/16/23 Rx 325 mg tablet tamsulosin 0.4 mg capsule 0.4 mg PO QPM #30 caps 11/25/23 12/16/23 Rx divalproex 250 mg tablet,delayed 250 mg PO HS #30 tabs 11/27/23 12/16/23 Rx release Saccharomyces boulardii 250 mg 250 mg PO BID #20 caps 12/15/23 12/16/23 Rx capsule (Florastor) levofloxacin 500 mg tablet 500 mg PO DAILY 10 days #10 tabs 12/15/23 12/16/23 Rx Patient History Medical History Mood disorder Dyslipidemia Hypertension Insufficient sleep syndrome Migraine Encounter for sterilization Venom-induced anaphylaxis 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 "had been having trouble chewing and opening and closing mouth, due to the pain">started on cyclobenzaprine. pt stated "he has been using it every night and it helps">no locking Lumbar disc disease Fibromyalgia Sleep apnea not currently using cpap GERD (gastroesophageal reflux disease) Anxiety History of COVID-19 x2, most recent 08/2021, home test, not hosp; mild symptoms>resolved Depression Personal history of urinary calculi (01/06/13) Surgical History History of excision of pilonidal cyst Hx of colonoscopy Hx of wisdom tooth extraction S/P cystoscopy with ureteral stent placement S/P shoulder surgery 2016- acromioplasty & distal clavicular resection, left History of vasectomy Family History Mother Hypertension Thyroid cancer Father COPD (chronic obstructive pulmonary disease) Melanoma of skin Sister Breast cancer Sister Colorectal cancer Denies family history of Sudden Ovarian cancer Prostate cancer Diabetes Myocardial infarction Lung cancer Lung disease Social History Smoking Status: Former smoker Tobacco Type: Cigarettes Age Started Using Tobacco: 18; Age Quit Using Tobacco: 49; packs per day: 0.5; Cigarettes Per Day: 2-3; Second Hand Exposure: No; Do You Dip or Chew Tobacco: No; Tobacco Cessation Education Requested by Patient: No Hx Alcohol Use: Yes Alcohol type: hard liquor Alcohol Intake Frequency: Monthly or Less Hx Substance Use: No Preferred Language: Turkmen Communication Ability: Effective Visual Impairment: Limited Hearing Ability: Normal Repair Miller Required: No Beliefs That Will Affect Care: None marital status: Current Living Situation: Family Current Living Situation Comment: Patient and his two children. current occupational status: employed current occupation: [employer] How many Children do You have: 3 Other Information That Helps Us Care for You: No Feels Safe at Home: Yes Safety Concerns: Feels Safe At This Time Childhood Exposure to Second-Hand Smoke: Yes Diet: regular caffeine: Yes (1-2 cups of coffee daily , occasional tea) during the past year weight has: remained stable Dental Care, Regularly: Yes Physical Activity Frequency: 3-4 Times per Week Seatbelt Use: always Sunscreen Use: Yes Do you think of yourself as: straight/heterosexual Gender Identity: Male Assistive Devices: Glasses Review of Systems Review of Systems: 12 point review of systems negative exce pt for otherwise indicated. Physical Exam Constitutional: well developed and well nourished; no acute distress Eyes: + anicteric sclerae; pupils not irregula r Respiratory: normal respiratory effort; no respiratory distress, does not use accessory muscles and no cough Cardiovascular: well perfused Gastrointestinal (Abdomen): Inspection/Auscultation: abdomen normal to inspection; abdomen not distended Musculoskeletal: Extremities: extremities normal to inspection Skin: normal turgor; no rashes and no lesions Neurologic: moves all extremities and awake Psychiatric: Orientation: alert and oriented x 3 Results & Data Vital Signs (Past 12 Hours) Vital Signs Temp Pulse Pulse Resp BP Pulse Ox O2 Del Method 12/16/23 20:30 37 C 97 H 14 133/73 98 Room Air 12/16/23 19:56 37.5 C 96 H 18 129/80 96 Room Air PG Care Time/CCT Total # of Minutes Spent Total Time Spent with Patient: Total time spent is greater than 50% in coordination of care (as documented) at patient's floor/unit and/or counseling patient: Coding Level of Care Code 50026 IN/OBS CONSULT LVL 4,60M Diagnoses Acute kidney injury N17.9 Right testicular pain N50.811 Right ureteral stone N20.1
[2023-12-17 08:07] LABS: Basophils # (auto) 0.04 K/uL (0.00-0.20); Basophils % (auto) 0.3 %; Eosinophils # (auto) 0.26 K/uL (0.00-0.50); Eosinophils % (auto) 2.2 %; Hematocrit (blood only) 42.4 % (42.0-52.0); Hemoglobin 14.2 g/dl (14.0-18.0); Immature Granulocytes # (auto) 0.06 K/uL (0.01-0.20); Immature Granulocytes % (auto) 0.5 %; Lymphocytes # (auto) 2.18 K/uL (1.20-3.40); Lymphocytes % (auto) 18.6 %; Mean Corpuscular Hemoglobin 29.2 pg (25.0-34.0); Mean Corpuscular Hgb Conc 33.5 g/dL (32.0-36.0); Mean Corpuscular Volume 87.2 fL (80.0-100.0); Mean Platelet Volume 10.7 fL (9.4-12.4); Monocytes # (auto) 1.26 K/uL (0.11-0.59); Monocytes % (auto) 10.8 %; Neutrophils % (auto) 67.6 %; Platelet Count 179 K/uL (130-400); RDW Standard Deviation 40.8 fL (36.4-46.3); Red Blood Count 4.86 M/uL (4.70-6.10)
[2023-12-17] MEDS: HYDROmorphone INJ 0.5 MG/0.5 ML SYR IV PRN (08:33)
--- NOTE | 2023-12-17 09:09 | Hospitalist Progress Note ---
Date of Service December 17, 2023 Assessment & Plan (1) Nephrolithiasis: Plan: - Worsening right-sided scrotal and lower back pain x 2 days - Leukocytosis with a neutrophil predominance improving - A/P CT revealed mild right-sided hydroureteronephrosis secondary to 3 distal right ureteral calculi measuring up to 5 mm - continue with Rocephin 2000 mg IV q24h to cover for infected stone - continue IVF resuscitation with Plasma-Lyte at 100mL/hr x 2 L - Pain control with IV acetaminophen and Dilaudid as needed - Continue tamsulosin - Urology following - cystoscopy with stent placement 12/17/23 (2) Acute kidney injury: Plan: - BUN 20, creatinine 2.09 (baseline 1.38), eGFR 39.5 on admission; repeat shows mildly worsening kidney function - Avoid nephrotoxic agents where possible - continue IVF - continue to trend BMP (3) Scrotal pain: Plan Full code NPO awaiting possible surgical management 12/17/23; regular diet post-op VTE PPx: SCDs Admission and Anticipated Discharge Date Admission Date: December 16, 2023 Supervising Physician Co-Signing Physician Notes Patient was seen and examined independently I discussed the case with Amy SOMERS I reviewed pertinent past medical social family history and also the plan of care and agree with the plan of care. this pt was in significant pain upon my visit , Dr Cisneros did see and will take to OR 12/18/23 abdomen was not acute but painful R.L pt with renal colic, stones seen on imaging for cysto and possible stent antibiotics of ceftriaxone Any exceptions will be noted below Subjective Patient is doing well with no acute events overnight. His pain is currently a 4/10, pain in his right flank and pelvic area. He spoke with urology this morning about cystoscopy with stent placement later today. Patient denies headache, dizziness, lightheadedness, dyspnea, chest pain, nausea, vomiting, dysuria, hematuria, edema, numbness, tingling. Review of Systems Review of Systems: see HPI Physical Exam Physical Exam: The patient is awake, alert and oriented 3, well developed and well nourished, normocephalic and atraumatic, in no acute distress. Non-toxic appearing. HEENT- EOMI, mucous membranes moist. Hearing grossly intact. Heart-normal S1 and S2. No murmurs, rubs or gallops. Lungs-clear bilaterally, no respiratory distress, no accessory muscle use. Abdomen-normal bowel sounds and soft. No ascites noted. Non-tender. Extremities- no clubbing, cyanosis, or edema. Psychiatric-normal affect. Results & Data Results & Data Vital Signs (Past 12 Hours) Vital Signs Temp Pulse Resp BP Pulse Ox O2 Del Method 12/17/23 07:45 36.7 C 79 18 111/71 96 Room Air PG Care Time/CCT Total # of Minutes Spent Total Time Spent with Patient: Total time spent is greater than 50% in coordination of care (as documented) at patient's floor/unit and/or counseling patient: Coding Level of Care Code None Diagnoses Nephrolithiasis N20.0 Acute kidney injury N17.9 Scrotal pain N50.82
[2023-12-17 09:45] LABS: Calcium 8.8 mg/dl (8.6-10.3); Potassium 3.8 mmol/L (3.5-5.1)
[2023-12-17 09:51] LABS: BUN Creatinine Ratio 9.4 (10-20); Creatinine Clr Calc Pharmacy 41.1 ml/min; Est GFR (African American) 38.9 ml/min; Est GFR (Non-African American) 33.5 ml/min
[2023-12-17] MEDS: ACETAMINOPHEN 1,000 MG/100 ML VIAL IV PRN (11:33)
[2023-12-17] MEDS ORDERED: PROPOFOL IV EMULSION 10 MG/ML 20 ML VIAL IV ONE (15:04)
[2023-12-17] MEDS ORDERED: DEXAMETHASONE SOD INJ 4 MG/ML VIAL ONE (15:07)
[2023-12-17] MEDS ORDERED: LIDOCAINE 2% 2 ML VIAL/AMP(20MG/ML) INFIL ONE (15:07)
[2023-12-17] MEDS ORDERED: ONDANSETRON INJ 2 MG/ML 2 ML VIAL ONE (15:07)
[2023-12-17] MEDS ORDERED: fentaNYL citrate PF 100 MCG/2 ML VIAL ONE (15:32)
[2023-12-17] MEDS ORDERED: MIDAZOLAM HCL 1 MG/ML 2ML VIAL ONE (15:32)
--- NOTE | 2023-12-17 15:47 | Anesthesiology Consultation ---
Date of Service December 17, 2023 Assessment & Plan Chart Review Chart Review: Acceptable Risk for Surgery and Patient NOT seen in Pre Admission Testing Consults Requested none ASA ASA2E Proposed Anesthesia Anesthesia Type: MAC Risk / Benefits Reviewed With: PT / POA / Parent / Guardian, Accepts Plan and Informed Consent Obtained History Surgery Operation Date: 12/17/23 09:50 Proposed Procedures p Cystoscopy, Retrograde Pyelogram, Right Stent Placement - Zay Cisneros MD Height/Weight Height: 5 ft 7 in Weight: 89.9 kg Allergies Allergy/AdvReac Type Severity Reaction Status Date / Time bee venom protein (honey bee) Allergy Severe Anaphylaxis Verified 12/15/23 09:17 topiramate [From Topamax] AdvReac Unknown renal stone Verified 12/15/23 09:17 Medications Home Medications Medication Instructions Recorded Confirmed Last Taken sildenafil 100 mg tablet 100 mg PO DAILY PRN sexual 12/04/22 12/16/23 09/22/23 activity #10 tabs ergocalciferol (vitamin D2) 1,250 1,250 mcg PO 2XWK 01/22/23 12/16/23 09/19/23 mcg (50,000 unit) capsule (Vitamin D2) tadalafil 20 mg tablet 20 mg PO DAILY PRN Erectile 01/22/23 12/16/23 Unknown Dysfunction sumatriptan succinate 100 mg tablet 100 mg PO Q2H PRN migraine 02/19/23 12/16/23 3 Months Ago headache #10 tabs ~06/24/23 testosterone (AndroGel) 2 pump topical DAILY #75 grams 07/22/23 12/16/23 09/23/23 08:00 alprazolam 0.5 mg tablet (Xanax) 0.5 mg PO HS #30 tabs 07/23/23 12/16/23 09/22/23 23:45 bupropion HCl 150 mg tablet,12 hr 150 mg PO BID #60 tabs 08/06/23 12/16/23 09/23/23 08:00 sustained-release cyclobenzaprine 10 mg tablet 10 mg PO HS PRN prn 09/09/23 12/16/23 09/19/23 naratriptan 2.5 mg tablet 2.5 mg PO UD PRN prn 09/09/23 12/16/23 Unknown pantoprazole 40 mg tablet,delayed 40 mg PO BID 09/23/23 12/16/23 09/23/23 08:00 release (Protonix) hydrocodone 10 mg-acetaminophen 1 tab PO TID PRN pain #90 tabs 11/25/23 12/16/23 Unknown 325 mg tablet tamsulosin 0.4 mg capsule 0.4 mg PO QPM #30 caps 11/25/23 12/16/23 Unknown divalproex 250 mg tablet,delayed 250 mg PO HS #30 tabs 11/27/23 12/16/23 Unknown release Saccharomyces boulardii 250 mg 250 mg PO BID #20 caps 12/15/23 12/16/23 Unknown capsule (Florastor) levofloxacin 500 mg tablet 500 mg PO DAILY 10 days #10 tabs 12/15/23 12/16/23 Unknown Active Medications Generic Name Dose Route Start Last Admin Trade Name Freq PRN Reason Stop Dose Admin Alprazolam 0.5 mg 12/16/23 21:00 12/16/23 21:33 Alprazolam 0.5 Mg Tablet PO 01/15/24 20:59 0.5 mg HS TORREY Administration Bupropion HCl 150 mg 12/16/23 21:00 12/17/23 11:40 Bupropion Sr 150 Mg Tabcr PO 01/15/24 20:59 Not Given BID TORREY Cyclobenzaprine HCl 10 mg 12/16/23 20:41 12/16/23 21:33 Cyclobenzaprine Hcl 10 Mg Tab PO 01/15/24 20:40 10 mg HS PRN Administration prn Divalproex Sodium 250 mg 12/16/23 21:00 12/16/23 21:34 Divalproex Delay Release 250 Mg Tabec PO 01/15/24 20:59 250 mg HS TORREY Administration Hydromorphone HCl 0.5 mg 12/16/23 20:41 12/17/23 11:29 Hydromorphone Inj 0.5 Mg/0.5 Ml Syr IV 12/30/23 20:40 0.5 mg Q2H PRN Administration [id number] Pain (6-10) Acetaminophen 1,000 mg in 100 mls @ 400 mls/hr 12/16/23 20:41 12/17/23 12:25 Ofirmev IV 12/19/23 20:40 Infused Q8H PRN Infusion Fever/Mild Pain (Pain 1-5) Pantoprazole Sodium 40 mg 12/16/23 21:00 12/17/23 11:40 Pantoprazole 40 Mg Tab PO 01/15/24 20:59 Not Given BID TORREY Sumatriptan Succinate 100 mg 12/16/23 20:41 12/16/23 23:15 Sumatriptan Succinate 100 Mg Tab PO 01/15/24 20:40 100 mg Q2H PRN Administration migraine headache Tamsulosin HCl 0.4 mg 12/16/23 21:00 12/16/23 21:34 Tamsulosin Hcl 0.4 Mg Cap PO 01/15/24 20:59 0.4 mg QPM TORREY Administration NPO Date Last Intake of Fluids: 12/16/23 Time Last Intake of Fluids: 23:00 Date Last Intake of Solids: 12/16/23 Time Last Intake of Solids: 23:00 Past Medical History Medical History Mood disorder Dyslipidemia Hypertension Insufficient sleep syndrome Migraine Encounter for sterilization Venom-induced anaphylaxis 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 "had been having trouble chewing and opening and closing mouth, due to the pain">started on cyclobenzaprine. pt stated "he has been using it every night and it helps">no locking Lumbar disc disease Fibromyalgia Sleep apnea not currently using cpap GERD (gastroesophageal reflux disease) Anxiety History of COVID-19 x2, most recent 08/2021, home test, not hosp; mild symptoms>resolved Depression Personal history of urinary calculi (01/06/13) Exercise / Class Metabolic Activity II 4-5 Yardwork/Stairs/Walk up hill Past Family History Family History Mother Hypertension Thyroid cancer Father COPD (chronic obstructive pulmonary disease) Melanoma of skin Sister Breast cancer Sister Colorectal cancer Denies family history of Sudden Ovarian cancer Prostate cancer Diabetes Myocardial infarction Lung cancer Lung disease Past Surgical History Surgical History History of excision of pilonidal cyst Hx of colonoscopy Hx of wisdom tooth extraction S/P cystoscopy with ureteral stent placement S/P shoulder surgery 2016- acromioplasty & distal clavicular resection, left History of vasectomy Past Anesthesia History No Hx of Anesthesia Complications and No Family Hx of Anesthesia Complications History of PONV No Hx of PONV and No Hx of Motion Sickness Social History Smoking Status: Former smoker Smoking cigarettes per day: 2-3 Do You Dip or Chew Tobacco: No Hx Alcohol Use: Yes Alcohol type: hard liquor alcohol intake frequency: a few times a month Hx Substance Use: No substance use type: does not use Physical Exam Vital Signs Last Vital Signs Temp 37.1 C 12/17/23 15:21 Pulse 84 12/17/23 15:21 Resp 18 12/17/23 15:21 BP 139/82 12/17/23 15:21 Pulse Ox 96 12/17/23 15:21 O2 Del Method Room Air 12/17/23 15:21 ENMT Mouth: no dentition abnormality Thyromental Distance: > or= 3.5 Finger Breadths Mallampati Class: II Neck normal visual inspection and + thick neck Respiratory normal respiratory effort Auscultation: lungs clear to auscultation bilaterally Cardiovascular Rate/Rhythm: regular rate and regular rhythm Psychiatric Orientation: alert Testing Laboratory Results 12/17/23 07:33 12/17/23 07:33 Urine Color Yellow 12/16/23 17:26 Urine Appearance Clear (Clear) 12/16/23 17:26 Urine pH 5.5 (4.5-7.5) 12/16/23 17:26 Ur Specific [place]er 1.029 (1.000-1.030) 12/16/23 17:26 Urine Protein 1+ (Negative) H 12/16/23 17:26 Urine Glucose (UA) Trace (Negative) H 12/16/23 17:26 Urine Ketones 1+ (Negative) H 12/16/23 17:26 Urine Nitrite Negative (Negative) 12/16/23 17:26 Ur Leukocyte Esterase 1+ (Negative) H 12/16/23 17:26 Urine WBC (Auto) 11-20 /hpf (0-5) H 12/16/23 17:26 Urine RBC (Auto) 0-2 /hpf (0-2) 12/16/23 17:26 U Hyaline Cast (Auto) 0-2 /lpf (0-2) 12/16/23 17:26 U Epithel Cells (Auto) 0-2 /hpf (0-2) 12/16/23 17:26 Urine Bacteria (Auto) None Seen (None Seen) 12/16/23 17:26 12/16/23 17:26 Urine Culture - Preliminary Urine,Clean Catch No growth - Less than 1,000 colonies/mL, Final report to follow.
[2023-12-17] MEDS: DIATRIZOATE MEGLUMINE 30% 100ML VIAL INSTIL ONE (16:26)
--- NOTE | 2023-12-17 16:29 | Operative Report ---
PG Post Operative Report Pre & Post Diagnosis Operation Date: 12/17/23 09:50 Pre-Op Diagnosis: nephrolithiasis Post-Op Diagnosis: nephrolithiasis I identified the patient and participated in the time-out.: Yes Procedure Operation Date: 12/17/23 09:50 Actual Procedures p Cystoscopy, Retrograde Pyelogram, Right Stent Placement(Right) - Zay Cisneros MD Surgeon Zay Cisneros MD Medical Office Assistant None Estimated Blood Loss 0 Findings Consistent with Post-Op Diagnosis Specimens None Drains 6 Romanian x 26 cm double-J ureteral stent in the right ureter Anesthesia Type MAC Complications none Disposition Accompanied Patient To Recovery: Yes Disposition: Recovery Room Indications This is a 58-year-old male who presented to the emergency department with right- sided flank pain. He was found to have right ureteral stones. He is brought to the OR for right ureteral stent placement to address his pain. Description of Procedure The patient was identified in the holding area and informed consent was confirmed. He was marked on the right side, then was taken to the operating room where anesthesia was initiated. He was placed in the dorsal lithotomy position with all pressure points appropriately padded. He was prepped and draped in the usual sterile fashion and a preoperative timeout was performed. A well-lubricated cystoscope was inserted per urethra and panendoscopy was performed. The pendulous urethra was normal with no strictures or mucosal abnormalities. The prostate was of normal size. His bladder appeared grossly normal with no tumors or stones appreciated. Ureteral orifices were in orthotopic position bilaterally. A 5 Romanian open-ended catheter was inserted and used to intubate the right u reteral orifice. A retrograde pyelogram was performed using Cystografin. The ureter was somewhat dilated with mild hydronephrosis. His stones had been small and I did not appreciate any obvious filling defect A 0.038 inch zip wire was advanced up to the kidney under fluoroscopic guidance. Over the wire, a 6 Romanian x 26 cm double-J ureteral stent was advanced. When the wire was removed, there was a good curl in the kidney under fluoroscopic guidance. A curl was visualized in the bladder with the cystoscope. At this point the bladder was drained and all instrumentation was removed. The patient was then awakened from anesthesia and was brought to the PACU in stable condition. I attest to the content of the Intraoperative Record and any orders documented therein. Any exceptions are noted below.
[2023-12-17] MEDS ORDERED: ONDANSETRON INJ 2 MG/ML 2 ML VIAL IV PRN (16:30)
[2023-12-17] MEDS ORDERED: ATROPINE SULFATE 0.1 MG/ML 10ML SYR IV PRN (16:30)
[2023-12-17] MEDS ORDERED: ePHEDrine sulfate 50 MG/ML AMP IV PRN (16:30)
[2023-12-17] MEDS ORDERED: fentaNYL citrate PF 100 MCG/2 ML VIAL IV PRN (16:30)
--- NOTE | 2023-12-17 16:45 | Anesthesiology Progress Note ---
Date of Service December 17, 2023 Anesthesia Post Procedure Vital Signs Vital Signs: Temp Pulse Pulse Resp BP Pulse Ox O2 Del Method 12/17/23 15:21 37.1 C 84 18 139/82 96 Room Air 12/17/23 15:20 36.7 C 84 18 147/90 H 94 Room Air 12/17/23 07:45 36.7 C 79 18 111/71 96 Room Air 12/16/23 20:30 37 C 97 H 14 133/73 98 Room Air 12/16/23 19:56 37.5 C 96 H 18 129/80 96 Room Air 12/16/23 18:30 94 H 16 134/90 97 Room Air 12/16/23 17:28 99 H 18 143/86 H 96 Pain Intensity Testicles: Pain Intensity: 4 Transfer of Care Handoff Completed per policy Notes Mental Status: alert / awake / arousable Patient Amnestic to Procedure: Yes Nausea / Vomiting: adequately controlled Pain: adequately controlled Airway Patency, RR, SpO2: stable & adequate BP & HR: stable & adequate Hydration State: stable & adequate Anesthetic Complications: no major complications apparent
--- NOTE | 2023-12-17 16:52 | Fluoroscopy Report ---
INTRAOPERATIVE RADIOGRAPHS CLINICAL HISTORY: Right ureteral stent placement. Fluoro time: 6 seconds Ka,r: 1.61 mGy FINDINGS: 2 spot fluoroscopic views of the right abdomen are correlated with abdominal CT dated 2023. The images show the proximal end of a right ureteral stent in appropriate position. Contrast in the renal pelvis shows fullness of the collecting system. IMPRESSION: Intraoperative images from a right ureteral stent placement procedure as above. Electronically signed by: Joel Kimbrough M.D. 12/17/2023 4:51 PM
--- NOTE | 2023-12-17 17:39 | Billing Data ---
Date of Service December 17, 2023 Coding Level of Care Code 95773 SUB INP/OBS CARE
[2023-12-17] MEDS: cefTRIAXone SODIUM 2,000 MG/50 ML BAG IV SCH (18:36)
[2023-12-18] MEDS ORDERED: oxyCODONE HCL IR 5 MG TAB (IMMEDIATE RELEASE) PO PRN (07:45)
[2023-12-18] MEDS ORDERED: ACETAMINOPHEN 500 MG TAB PO PRN (07:45)
[2023-12-18 09:40] LABS: Basophils # (auto) 0.03 K/uL (0.00-0.20); Basophils % (auto) 0.3 %; Eosinophils # (auto) 0.05 K/uL (0.00-0.50); Eosinophils % (auto) 0.4 %; Hematocrit (blood only) 41.4 % (42.0-52.0); Hemoglobin 13.8 g/dl (14.0-18.0); Immature Granulocytes # (auto) 0.05 K/uL (0.01-0.20); Immature Granulocytes % (auto) 0.4 %; Lymphocytes # (auto) 1.53 K/uL (1.20-3.40); Mean Corpuscular Hemoglobin 29.1 pg (25.0-34.0); Mean Corpuscular Hgb Conc 33.3 g/dL (32.0-36.0); Mean Corpuscular Volume 87.3 fL (80.0-100.0); Mean Platelet Volume 10.5 fL (9.4-12.4); Monocytes # (auto) 1.04 K/uL (0.11-0.59); Monocytes % (auto) 8.8 %; Neutrophils # (auto) 9.09 K/uL (1.40-6.50); Neutrophils % (auto) 77.1 %; Platelet Count 202 K/uL (130-400); RDW Coefficient of Variation 12.5 % (11.5-14.5); RDW Standard Deviation 39.9 fL (36.4-46.3); Red Blood Count 4.74 M/uL (4.70-6.10); White Blood Count 11.79 K/ul (4.8-10.8)
[2023-12-18 09:53] LABS: BUN Creatinine Ratio 11.7 (10-20); Calcium 8.9 mg/dl (8.6-10.3); Creatinine Clr Calc Pharmacy 56.6 ml/min; Est GFR (African American) 57.2 ml/min; Est GFR (Non-African American) 49.4 ml/min
--- NOTE | 2023-12-18 10:25 | Urology Progress Note ---
Date of Service December 18, 2023 Assessment & Plan (1) Right ureteral stone: Plan: - Pt POD#1 s/p cystoscopy and right ureteral stent placement - Doing well, progressing as expected - Afebrile, lab work reviewed - creatinine (1.54) and WBC (11.79) downtrending - Urine culture prelim with no growth - Tolerating right ureteral stent with minimal bother - Okay to d/c from perspective when medically stable - Recommend d/c with Tamsulosin, Pyridium and oxybutynin for stent management - Expected clinical course reviewed, all questions answered - Will arrange outpatient follow-up with our service to set up definitive stone treatment - will sign off, please contact our service with any additional questions or concerns Admission and Anticipated Discharge Date Admission Date: December 17, 2023 Subjective Patient seen and examined at bedside this morning. He is awake and sitting up in bed. He reports some dysuria and urinary urgency. Reports hematuria postprocedure, which seems to be clearing. Denies nausea, vomiting, fever or chills. Review of Systems Constitutional: as per Subjective / HPI Genitourinary: + as per Subjective / HPI Physical Exam Constitutional: well developed and well nourished; no acute distress Respiratory: normal respiratory effort; no respiratory distress and no labored breathing Gastrointestinal (Abdomen): Inspection/Auscultation: abdomen normal to inspection Musculoskeletal: Head/Neck/Chest: normocephalic Neurologic: moves all extremities and awake Psychiatric: Orientation: alert and oriented x 3 Results & Data Vital Signs (Past 12 Hours) Vital Signs Temp Pulse Resp BP Pulse Ox O2 Del Method 12/18/23 09:09 36.6 C 77 19 148/83 H 96 Room Air 12/18/23 04:15 37 C 91 H 16 121/77 94 Room Air 12/18/23 00:26 37.1 C 91 H 16 123/65 95 Room Air PG Care Time/CCT Total # of Minutes Spent Total Time Spent with Patient: Total time spent is greater than 50% in coordination of care (as documented) at patient's floor/unit and/or counseling patient: Coding Level of Care Code 73978 SUB INP/OBS CARE 1/25MIN Diagnoses Right ureteral stone N20.1
--- NOTE | 2023-12-18 10:42 | Discharge Summary ---
Discharge Summary Date of Service December 18, 2023 Principal Dx & Hospital Course #1 = Principal Diagnosis (1) Nephrolithiasis: - Worsening right-sided scrotal and lower back pain x 2 days - A/P CT revealed mild right-sided hydroureteronephrosis secondary to 3 distal right ureteral calculi measuring up to 5 mm - Continue tamsulosin - Urology consulted - cystoscopy with stent placement 12/17/[address] Cisneros - reviewed continue tamsulosin, Pyridium and oxybutynin per stent management - outpatient follow-up for removal Preliminary urine culture no growth, no abx indicated Pain control at discharge - tylenol and ibuprofen (2) Acute kidney injury: - BUN 20, creatinine 2.09 (baseline 1.38), eGFR 39.5 on admission; Cr after stent removal, improving and near baseline (3) Scrotal pain: Plan Dispo: discharge to home today. work note provided Notes For Next Care Provider Admitted with back and scrotal pain, resolved after stent placement. remain in place until outpatient removal Medication Changes From Visit prn oxybutynin and Pyridium Admission HPI Per Admitting Provider Kaushik is a 58-year-old male with PMH of HTN, migraine, nephrolithiasis, fibromyalgia, GERD, dyslipidemia, mood disorder, sleep apnea, and bilateral tinnitus. He originally presented to the ED on 12/14 for acute onset of right sided groin pain; was discharged on levofloxacin 500 mg daily. He returned on 12/15 as the pain worsened and began to radiate to his lower back. History of recent varicocelectomy on September 23, 2023; however this was on the left side. Patient reports that the pain in his right groin and lower back is intermittent and comes in waves, but can last for hours at a time. He characterizes it as an achy pain and describes it as 2/10 at present, 8/10 at worst. No radiation down the legs. Patient took hydrocodone tablets (3 half tablets today), but reports that this did not alleviate his pain. He does have a history of kidney stones, but feels like prior kidney stones were more painful than what he is feeling currently. Patient has not had much to eat or drink all day. He took his regular morning medications today; no recent change in medications. No history of UTIs. He reports no medication allergies, or allergies to antibiotics such as penicillin. Patient's vitals are stable at time of admission. ED course: Toradol 10 mg IV Zofran 4 mg IV NSS 1000 L IV ROS: Patient endorses R-sided groin pain, lower back pain, lightheadedness with movements, pink urine yesterday (concern for blood in urine), Patient denies fever, chills, night-sweats, IVERSON, chest pain, SOB, cough, abdominal pain, burning with urination, decreased urinary frequency, dysuria, saddle anesthesia, blood in the stool, or N/T going down the legs. Discharge Exam General: NAD, VS as above, sitting up in bed, appears well Resp: normal respiratory effort, lungs clear to auscultation CV: RRR, no murmur, Abd: soft, non tender, Back: no CVA tenderness Extremities: Moves all extremities, no edema Neuro: A&O x3, Skin: intact, no lesions noted Discharge Plan Discharge Items Patient Disposition: Home - Self-Care Reason For Visit: NEPHROLITHIASIS Discharge Diagnosis: Kidney stone with ureteral stent placement Activity: Resume your previous activity Driving/Machine Use: No limitations Weightbearing: Full weightbearing Non-emergency contact: Primary Care Provider and Urologist Call non-emergency contact if: you have any medication questions and your temperature is above 101 Follow-up/Referrals: Narcisa Yao CRNP [Nurse Practitioner] - (follow up for stent removal Chelsy from Urology office will call patient with a hospital follow up. Per Jodi at the office.) Harlan Johnson MD [Primary Care Provider] - 12/30/23 2:00 pm (Follow up with 2 weeks ) Diet: Regular Addtl Attending Provider Instructions: Mr. العلي, Ozzy were hospitalized after worsening scrotal and back pain found to be from a kidney stone. You had a stent placed with Dr. Cisneros on 12/16 with relief of symptoms. You also had a slight bump in your kidney function which is improving after placement of the stent. Recommendations after discharge: - continue tamsulosin (floamx) while the stent is in place - Pyridium can be taken as needed for urinary pain - oxybutynin can be taken as needed for stent pain or spasm - Can use Tylenol and ibuprofen for pain control - follow the instructions on the bottle. No indication for antibiotics. No changes to your home medications. CONTACT YOUR PRIMARY CARE PROVIDER OR UROLOGIST if you experience any of the following: Shortness of breath or difficulty breathing Fevers or chills Feeling tired with normal activity or experiencing dizziness or fainting Difficulty following your treatment plan, or difficulty taking medications - uncontrolled pain - unable to urinate CALL 911 OR GO TO THE EMERGENCY DEPARTMENT if you experience any of the following: Severe abdominal pain or nausea/vomiting Severe chest pain, or chest pain that radiates (moves) to your jaw or arm Sudden, severe shortness of breath or difficulty breathing Thank you for allowing us to participate in your care. Pending Studies at Discharge: No Stand-Alone Forms: [facility] [employer], Work/School Release, Smoking Cessation Medications and DC Order Prescriptions: New phenazopyridine [Pyridium] 200 mg tablet 200 mg PO TID PRN (Reason: urinary pain ) Qty: 6 0RF oxybutynin chloride 5 mg tablet 5 mg PO BID PRN (Reason: bladder spasms/ stent pain) Qty: 10 0RF Continued sildenafil 100 mg tablet 100 mg PO DAILY PRN (Reason: sexual activity) Qty: 10 12RF Rx Instructions: administer 30 minutes to 4 hours before activity sumatriptan succinate 100 mg tablet 100 mg PO Q2H PRN (Reason: migraine headache) Qty: 10 5RF Rx Instructions: do not exceed 2 doses per 24 hrs alprazolam [Xanax] 0.5 mg tablet 0.5 mg PO HS Qty: 30 5RF hydrocodone-acetaminophen 10-325 mg tablet 1 tab PO TID PRN (Reason: pain) Qty: 90 0RF tamsulosin 0.4 mg capsule 0.4 mg PO QPM Qty: 30 5RF Rx Instructions: TAKE 1 CAPSULE BY MOUTH ONCE DAILY divalproex 250 mg tablet,delayed release (DR/EC) 250 mg PO HS Qty: 30 2RF bupropion HCl 150 mg tablet sustained-release 12 hr 150 mg PO BID Qty: 60 5RF Rx Instructions: 150 mg orally twice a day; testosterone [AndroGel] 20.25 mg/1.25 gram (1.62 %) gel in metered-dose pump 2 pump topical DAILY Qty: 75 3RF Patient Comments: not using currently, waiting on approval Rx Instructions: apply 1 pump amount over max area of EACH upper arm and shoulder ergocalciferol (vitamin D2) [Vitamin D2] 1,250 mcg (50,000 unit) capsule 1,250 mcg PO 2XWK Rx Instructions: Last filled 08/2023 x28 day supply per pharmacy. Unable to verify if pt still taking. tadalafil 20 mg tablet 20 mg PO DAILY PRN (Reason: Erectile Dysfunction) Saccharomyces boulardii [Florastor] 250 mg capsule 250 mg PO BID Qty: 20 0RF Rx Instructions: swallow whole cyclobenzaprine 10 mg tablet 10 mg PO HS PRN (Reason: prn) naratriptan 2.5 mg tablet 2.5 mg PO UD PRN (Reason: prn ) pantoprazole [Protonix] 40 mg tablet,delayed release (DR/EC) 40 mg PO BID Discontinued levofloxacin 500 mg tablet 500 mg PO DAILY 10 Days Qty: 10 0RF Discharge Orders: Discharge Order (Routine); Ordered 12/18/23 Ordered By: Cee Yoo/Other Patient Handouts: Having a Ureteral Stent Admission Data Admit Date/Time: 12/17/23 16:35 Attending Provider: Byron Rodríguez Admit Provider: David Mancilla Primary Care Provider: Harlan Johnson Other Providers: David Mancilla; Zeb Hand Other Interventions: Discharge Summary Assessment (RN) Last Done: 12/18/23 10:57 Hospital Stay Data Consultations 12/16/23 18:14 ED Decision to Admit Stat 12/16/23 20:41 Consult Urology Routine Procedures Performed Operation Date: 12/17/23 09:50 Actual Procedures p Cystoscopy, Retrograde Pyelogram, Right Stent Placement(Right) - Zay Cisneros MD Diagnostic Imagining Performed Abdomen/Pelvis CT 12/16/23 16:[address] WITHOUT CONTRAST CT DOSE: 1313.84 mGy.cm HISTORY: Acute right-sided flank pain right flank pain rad to right scrotum TECHNIQUE: Multiaxial CT images of the abdomen and pelvis were performed without contrast. A dose lowering technique was utilized adhering to the principles of ALARA. COMPARISON STUDY: 02/10/2023 FINDINGS: Mild bibasilar atelectasis. Free air. Unremarkable spleen, pancreas, gallbladder and adrenal glands. Mild hepatomegaly with hepatic steatosis. No evidence of cirrhosis. Numerous nonobstructing bilateral renal calculi redemonstrated measuring up to approximately 4 mm bilaterally. There is mild right-sided hydroureteronephrosis with reactive perinephric and perirenal inflammatory stranding secondary to approximately 3 obstructing calculus distal right ureter/UVJ measuring up to 5 m m. Partially decompressed urinary bladder. Prostatomegaly. Atherosclerosis of the aorta without aneurysm. Surgical clips of the scrotum. No bowel obstruction or bowel wall thickening. Colonic diverticulosis. Indeterminate 3.4 cm focus in the mid cecum, likely stool products. Normal appendix. No acute fracture. IMPRESSION: 1. Mild right-sided hydroureteronephrosis secondary to three distal right ureteral calculi measuring up to 5 mm. 2. Nonobstructing bilateral nephrolithiasis. 3. Normal appendix. 4. Hepatic steatosis. ACT 112: Negative or not required by law. The above report was generated using voice recognition software. It may contain grammatical, syntax or spelling errors. Electronically signed by: Carmine Hampton M.D. 12/16/2023 5:31 PM Retrograde Pyelogram 12/17/23 00:00 INTRAOPERATIVE RADIOGRAPHS CLINICAL HISTORY: Right ureteral stent placement. Fluoro time: 6 seconds Ka,r: 1.61 mGy FINDINGS: 2 spot fluoroscopic views of the right abdomen are correlated with abdominal CT dated 12/16/2023. The images show the proximal end of a right ureteral stent in appropriate position. Contrast in the renal pelvis shows fullness of the collecting system. IMPRESSION: Intraoperative images from a right ureteral stent placement procedure as above. Electronically signed by: Joel Kimbrough M.D. 12/17/2023 4:51 PM Pending Results Patient Have Any Pending Studies at Discharge: No Discharge Instructions Given to Patient (Per Discharging Provider) Mr. العلي, Ozzy were hospitalized after worsening scrotal and back pain found to be from a kidney stone. You had a stent placed with Dr. Cisneros on 12/16 with relief of symptoms. You also had a slight bump in your kidney function which is improving after placement of the stent. Recommendations after discharge: - continue tamsulosin (floamx) while the stent is in place - Pyridium can be taken as needed for urinary pain - oxybutynin can be taken as needed for stent pain or spasm - Can use Tylenol and ibuprofen for pain control - follow the instructions on the bottle. No indication for antibiotics. No changes to your home medications. CONTACT YOUR PRIMARY CARE PROVIDER OR UROLOGIST if you experience any of the following: Shortness of breath or difficulty breathing Fevers or chills Feeling tired with normal activity or experiencing dizziness or fainting Difficulty following your treatment plan, or difficulty taking medications - uncontrolled pain - unable to urinate CALL 911 OR GO TO THE EMERGENCY DEPARTMENT if you experience any of the following: Severe abdominal pain or nausea/vomiting Severe chest pain, or chest pain that radiates (moves) to your jaw or arm Sudden, severe shortness of breath or difficulty breathing Thank you for allowing us to participate in your care. Supervising Physician Co-Signing Physician Notes I personally examined the patient and verified all schaeffer points of history and exam, discussed case, and agree with decision making with Dr Villavicencio PAC Feeling up to going home. Vitals noted, in general he is awake and alert pleasant no distress. HEENT normocephalic atraumatic mucous membranes moist. Breathing unlabored no accessory muscle use good effort. Skin without rashes pallor or icterus. MINOO improving, status post stenting. Appreciate urology input. Stable for home. Otherwise as above. Total Time Total Time Spent Total Time Spent (In Minutes): Time spent day of discharge 32 minutes including direct patient care, medication reconciliation, documentation, review of labs and images, and coordination of care. Coding Level of Care Code 89623 INP/OBS DISCH >30 MIN Diagnoses Nephrolithiasis N20.0 Acute kidney injury N17.9 Scrotal pain N50.82
[2023-12-18 12:02] VITALS: BP 122/74; PULSE 78; RESP 17; TEMP 98.2; O2SAT 94
== END 2023-12-18 18:57 | disposition home or self-care (01) | DRG 661 ==
LOC: 3N 15:03 → ED 15:03 → SUATTDRO 19:14 → 3N 20:23 → SUATTDRO 12-17 16:35